=== PATIENT | female | born 1970 | race African-American/Black ===

== ENCOUNTER 2021-07-13 12:29 | Emergency (ER) | payer MEDICAID ==
[~2021-07-13] VITALS: Ht 162.6 cm; Wt 69.0 kg
[2021-07-13 12:33] VITALS: BP 148/76
[2021-07-13] MEDS ORDERED: ACETAMINOPHEN 325MG TABLET PO ONE (13:00)
[2021-07-13] MEDS ORDERED: ACET-2708 MT (13:00)
== END 2021-07-13 13:17 | disposition home or self-care (01) ==
LOC: ER 12:50
DX: S00.93XA Contusion of unspecified part of head, initial encounter (principal); S16.1XXA Strain of muscle, fascia and tendon at neck level, initial encounter; E78.00 Pure hypercholesterolemia, unspecified; Z86.73 Personal history of transient ischemic attack (TIA), and cerebral infarction without residual deficits; V49.9XXA Car occupant (driver) (passenger) injured in unspecified traffic accident, initial encounter; Y93.89 Activity, other specified; Y92.89 Other specified places as the place of occurrence of the external cause; Y99.8 Other external cause status
CPT/HCPCS: 99283

== ENCOUNTER 2023-03-11 12:04 | Emergency (ER) | payer MEDICAID, OTHER ==
[~2023-03-11] VITALS: Ht 167.6 cm; Wt 94.5 kg
[~2023-03-11 12:04] MED LIST: ACET-2708 MT
[2023-03-11 12:11] VITALS: O2SAT 100
[2023-03-11] MEDS ORDERED: IBUPROFEN 600MG TABLET PO STA (15:00)
[2023-03-11] MEDS ORDERED: NAPR-681 PO (15:16)
[2023-03-11] MEDS ORDERED: CYCL5TAB PO (15:16)
[2023-03-11 16:18] VITALS: BP 124/81; PULSE 73; RESP 18; TEMP 98.3
== END 2023-03-11 16:19 | disposition home or self-care (01) ==
LOC: ER 13:31
DX: S16.1XXA Strain of muscle, fascia and tendon at neck level, initial encounter (principal); M25.512 Pain in left shoulder; V49.59XA Passenger injured in collision with other motor vehicles in traffic accident, initial encounter; Y93.89 Activity, other specified; Y92.89 Other specified places as the place of occurrence of the external cause; Y99.8 Other external cause status; Z98.890 Other specified postprocedural states
CPT/HCPCS: 73030; 99283

== ENCOUNTER 2024-04-03 16:39 | Emergency (ER) | payer MEDICAID, OTHER ==
[~2024-04-03] VITALS: Ht 165.1 cm; Wt 90.0 kg
[~2024-04-03 16:39] MED LIST changes: +CYCL5TAB PO; +NAPR-681 PO
[2024-04-03 16:41] VITALS: TEMP 98.7; O2SAT 100
[2024-04-03 19:15] VITALS: BP 149/88; PULSE 66; RESP 17
[2024-04-03] MEDS ORDERED: LIDO700A30 TP (19:16)
[2024-04-03] MEDS ORDERED: HYDR-4001 MT (19:16)
[2024-04-03] MEDS ORDERED: CYCL5TAB PO (19:16)
== END 2024-04-03 19:41 | disposition home or self-care (01) ==
LOC: ER 16:39
DX: S09.90XA Unspecified injury of head, initial encounter (principal); M54.2 Cervicalgia; Z86.73 Personal history of transient ischemic attack (TIA), and cerebral infarction without residual deficits; Z79.899 Other long term (current) drug therapy; X58.XXXA Exposure to other specified factors, initial encounter; Y93.89 Activity, other specified; Y92.89 Other specified places as the place of occurrence of the external cause; Y99.8 Other external cause status
CPT/HCPCS: 99283